=== PATIENT | male | born 1980 | race Hispanic/Latino ===

== ENCOUNTER 2023-12-14 21:14 | Emergency (ER) | payer SELFPAY ==
[2023-12-14 21:26] VITALS: BP 130/80
--- NOTE | 2023-12-14 23:08 | ED.GENMED ---
History of Present Illness
General
Chief Complaint: Skin Surface Trauma
Source: patient
Exam Limitations: none
Time Seen by Provider: 12/14/23 22:46
Nursing documentation reviewed up to this point in time: agreed with
History of Present Illness
History of Present Illness:
Patient is a 43-year-old male who sustained laceration to left hand while using a knife cutting fish. He is [place]-speaking and language line used for translation. Patient is not date on tetanus. He has [id number]. He denies any other
injuries. He denies any pain.
Review of Systems
Review of Systems
Allergies reviewed?: Yes
All Other Systems: ROS reviewed and negative except as documented in HPI and ROS
Constitutional: Reports no symptoms
Musculoskeletal: Reports other (left hand laceration )
Skin: Reports other (see above )
Neurological: Reports no symptoms
Psychiatric: Reports no symptoms
Phy Exam
General Physical Exam
General Presentation: no apparent distress
General age: appears stated age
General Skin: warm and dry
General Habitus: normal
General Mental: alert
General Hydration: appears well hydrated
Neurological Exam
Neurological Exam: alert and oriented x3
Musculoskeletal Exam
Musculoskeletal Exam: full ROM and other (Left upper EXTR strong pulses patient with 1 cm laceration to the dorsal aspect of the left hand over the proximal phalanx with visible tendon appears to be small laceration to tendon however no deficit able
to flex and extend normal distal sensation, no bony tenderness )
Skin Exam
Skin Exam: normal color and warm/dry
Psychiatric Exam
Psychiatric Exam: normal mood/affect
Course
Orders/Labs/Results
Orders:
Orders
12/14/23 23:07
Cephalexin Monohydrate [Keflex] 500 mg PO NOW STA
Tetanus/Diphth/Acelpertussis [Adacel] 0.5 ml IM .ONCE ONE
Vital Signs
Initial and Last Documented VS:
Initial Vital Signs
Temp Pulse Resp BP Pulse Ox
98.1 F 68 18 130/80 98
12/14/23 21:26 12/14/23 21:26 12/14/23 21:26 12/14/23 21:26 12/14/23 21:26
Last Documented Vital Signs
Temp Pulse Resp BP Pulse Ox
98.1 F 68 18 130/80 98
12/14/23 21:26 12/14/23 21:26 12/14/23 21:26 12/14/23 21:26 12/14/23 21:26
Procedures
Laceration Closure
Left Dorsal Hand:
Status of Wound: clean
Size of Wound in cm: 1.5
Description of Wound Edges: sharp
Preparation: cleaned with saline
Anesthesia: 1% Lidocaine
Revision/Debridement: routine- no revision, irrigate-direct pressure and other (Tendon visible small laceration however no deficit)
Type of Closure: single layer closure
Skin Closure Material: 4-0 nylon
Number of sutures: 3
MDM/Problems Addressed
Differential Diagnosis Includes:
Not limited to laceration, tendon injury
MDM/Problems Addressed:
Patient has laceration to left hand dorsal aspect of left proximal phalanx tendon is visible appears to be small laceration to tendon however no deficit in function or sensation. Wound was irrigated with copious amounts of normal saline sutured as
documented antibiotic and tetanus splint ordered will DC with hand follow-up. Language line was used to review instructions with patient. Did review with patient that he does have a tendon that is lacerated though he has normal function is very
important he follow-up with hand surgery he is to call tomorrow. He was given instructions for antibiotic and wound care.
*Critical Care Note
Total Time (30-74mins, 75-104mins- exclusive of procedures): Not Applicable
ED Attending Note
-
Portions of this chart may have been created with voice recognition software.� Occasional wrong word or��sound alike� substitutions may have occurred due to the inherent limitations of voice recognition software.
Discharge Plan
Departure
Patient Disposition: Home (Routine Discharge)
Date of Disposition: 12/14/23
Time of Disposition: 23:19
Patient with high blood pressure during this ER visit?: No
Covid-19: Not Applicable
Discharge Problem:
Hand laceration, tendon injury
Instructions: Laceration Repair With Buckner (DC), BLOOD PRESSURE
Prescriptions:
New
cephalexin 500 mg capsule
500 mg PO Q6H Qty: 20 0RF
Referrals:
Robert Ann MD [Active] -
UNKNOWN - PT DOES,NOT KNOW [Family Provider] -
Activity Restrictions/Additional Instructions:
Keep clean and dry for 24 hours after 24 hours wash with soap and water twice a day apply small layer of antibiotic ointment to the area. Keep splint in place until seen and evaluated by hand doctor. antibiotics as directed for next 5 days to
prevent infection. Please call tomorrow to make an appointment to see hand doctor in the next several days for reevaluation of tendon injury.
return if any worsening of symptoms if increased pain swelling redness fever chills
Interventions
Interventions:
ED-Skin Assessment Last Done: 12/14/23 21:58
Discharge Date and Time
Print Language: CITIZEN OF [place]
[2023-12-14] MEDS: ADACEL 0.5 ML IM (23:20)
[2023-12-14] MEDS: KEFLEX 500 MG PO (23:20)
[2023-12-14 23:41] VITALS: BP 115/84
[2023-12-14 23:45] VITALS: BP 115/84
== END 2023-12-14 23:45 | disposition home or self-care (01) ==
LOC: EMR 21:14
PROVIDERS: EMERGENCY PHYSICIAN Emergency Medicine
DX: S61.412A Laceration without foreign body of left hand, initial encounter (principal); S66.902A Unspecified injury of unspecified muscle, fascia and tendon at wrist and hand level, left hand, initial encounter; W26.0XXA Contact with knife, initial encounter; Z23 Encounter for immunization
CPT/HCPCS: 99284; 13131; 90471; 90715